=== PATIENT | female | born 2000 ===

== ENCOUNTER → 2019-10-23 | Outpatient (CLI) | payer OTHER | LOC: ZCOL.LAB 15:25 | DX: Z20.828 Contact with and (suspected) exposure to other viral communicable diseases (principal) ==

== ENCOUNTER 2019-11-05 22:36 | Emergency (ER) | payer OTHER ==
[~2019-11-05] VITALS: Ht 152.4 cm; Wt 61.4 kg
[2019-11-05 23:05] VITALS: TEMP 100.3
[2019-11-06 00:39] LABS: STREP SCREEN POSITIVE
[2019-11-06] MEDS ORDERED: CLEOCIN HCL300 MG PO (00:47)
[2019-11-06 01:06] VITALS: BP 132/72; PULSE 113
== END 2019-11-06 01:20 | disposition home or self-care (01) ==
LOC: COL.ER 22:36
PROVIDERS: Nurse Practitioner Primary Care
DX: J03.00 Acute streptococcal tonsillitis, unspecified (principal); Z20.828 Contact with and (suspected) exposure to other viral communicable diseases